=== PATIENT | male | born 1965 | race Caucasian/White ===

== ENCOUNTER → 2019-06-09 | Outpatient (CLI) | payer BC ==
--- NOTE | 2019-06-09 17:45 | PCVCIMAG ---
APPROVED REPORT Study performed: 06/09/2019 15:53:47 EXAM: Comprehensive 2D, Doppler, and color-flow Echocardiogram Patient Location: Echo lab Room #: 2Status: routine BSA: 2.11 HR: 74 bpmBP: 220/106 mmHg Rhythm: LBBB with frequent PVCs Other Information Study Quality: Good Risk Factors: Cardiac Risk Factors: HTN Indications Abnormal ECG Palpitations Hypertension/HDD 2D Dimensions LV Single Plane 4CH: 40.19 % LV Single Plane 2CH: 50.89 % Biplane EF: 46.6 % Volumes Left Atrial Volume (Systole) Biplane LA Volume: 51.00 mLLA ESV Index: 24.00 mL/m2 Aortic Valve AoV Peak Zacarias.: 1.52 m/s AO Peak Gr.: 13.00 mmHg Mitral Valve E/A Ratio: 0.8 MV E Max Zacarias.: 0.85 m/s MV A Zacarias.: 1.04 m/s IVRT: 163.00 ms Tricuspid Valve TR Peak Gr.: 13.00 mmHg TV Vmax: 0.65 m/sPA Pressure: 20.00 mmHg Left Ventricle The left ventricle is normal size. The apex is dilated Mid distal septal and inferior hypokinesis. There is normal left ventricular wall thickness. Left ventricular systolic function is moderately decreased. LVEF is 40-45% This study is not technically sufficient to allow evaluation of the LV diastolic function. Right Ventricle The right ventricle is normal size. The right ventricular systolic function is normal. Atria The left atrium size is normal. The right atrium size is normal. Aortic Valve Aortic valve is trileaflet. Mild aortic valve sclerosis. Mild aortic regurgitation. There is no aortic valvular stenosis. Mitral Valve The mitral valve is normal in structure. Mild mitral regurgitation. No evidence of mitral valve stenosis. Tricuspid Valve The tricuspid valve is normal in structure. Trace to mild tricuspid regurgitation with a PA pressure of 20 mmHg. Pulmonic Valve The pulmonary valve is normal in structure. There is no pulmonic valvular regurgitation. Great Vessels The aortic root is normal in size. The ascending aorta is normal in size. Aortic arch is normal in caliber. IVC is normal in size and collapses >50% with inspiration. Pericardium There is no pericardial effusion. There is no pleural effusion. <Conclusion> The left ventricle is normal size. The apex is dilated Left ventricular systolic function is moderately decreased. LVEF is 40-45% The right ventricle is normal size. The left atrium size is normal. Aortic valve is trileaflet. Mild aortic valve sclerosis. Mild aortic regurgitation. Mild mitral regurgitation. Trace to mild tricuspid regurgitation with a PA pressure of 20 mmHg. The aortic root is normal in size. There is no pericardial effusion.
== END | disposition home or self-care (01) ==
LOC: PCVCIMAG 15:42
PROVIDERS: ATTEND Internal Medicine Cardiovascular Disease
DX: I08.3 Combined rheumatic disorders of mitral, aortic and tricuspid valves (principal); I10 Essential (primary) hypertension; I44.7 Left bundle-branch block, unspecified; I49.3 Ventricular premature depolarization; K21.9 Gastro-esophageal reflux disease without esophagitis; Z72.89 Other problems related to lifestyle; Z88.0 Allergy status to penicillin; Z82.49 Family history of ischemic heart disease and other diseases of the circulatory system; Z79.82 Long term (current) use of aspirin; Z79.899 Other long term (current) drug therapy
CPT/HCPCS: 93306; 93325; 93351

== ENCOUNTER → 2019-06-20 | Outpatient (CLI) | payer BC ==
[~2019-06-20] MED LIST: REGADENOSON 0.4 MG/5 ML DISP.SYRIN. IV ONE
--- NOTE | 2019-06-20 15:54 | PCVCIMAG ---
EXAM: BILATERAL RENAL ULTRASOUND AND BILATERAL RENAL DUPLEX INDICATION: Hypertension FINDINGS: Right kidney: Length measures 10.6 cm. No hydronephrosis or extensive renal scarring. Right renal duplex: Adequate technical quality. No sonographic evidence of renal artery stenosis. The aortic to renal artery ratio is 1.6. The renal vein is patent. Left kidney: Length measures 11.0 cm. No hydronephrosis or extensive renal scarring. Left renal duplex: Adequate technical quality. No sonographic evidence of renal artery stenosis. The aortic to renal artery ratio is 0.9. The renal vein is patent. Bladder: No obvious abnormalities. IMPRESSION: No significant renal artery stenosis. No hydronephrosis bilaterally. LOC:[id number]
--- NOTE | 2019-06-20 17:36 | PCVCIMAG ---
APPROVED REPORT Imaging Protocol: Rest Tc-99m/Stress Tc-99m 1 day Study performed: 06/20/2019 09:14:04 Indication: Chest pain, Dyspnea, Palpitations, Supraventricular Tachycardia Patient Location: Out-Patient Stress Nurse: Flaca Fernandez RN, Nataliya Gibbs RN PA Tech:SAEED [place] Ht: 6 ft 0 in Wt: 196 lbs BSA: 2.11 m2 HR: 71 bpm BP: 200/88 mmHg BMI: 26.5 Rhythm: Sinus Rhythm, LBBB Medical History Medical History: HTN Medications: Aspirin, Bystolic, Edarbyclor, Crestor Allergies: PCN Cardiac Risk Factors: Age Pretest Chest Pain Characteristics: No chest pain Exercise History: Indeterminate Resting Data Rest SPECT myocardial perfusion imaging was performed in supine position 45 minutes following the intravenous injection of 10.6 mCi of Tc-99m Sestamibi. Time of rest injection: 0930 Date: 06/20/2019 Administration Route: IV Administration Site: Right AC Pharmacologic Stress Pharmacologic stress test was performed by injecting Regadenoson 0.4 mg IV push over 10-15 seconds immediately followed by the intravenous injection of 32.8 mCi of Tc-99m Sestamibi. Time of stress injection: 1100 Date: 06/20/2019 Administration Route: IV Administration Site: Right AC Gated Stress SPECT was performed 45 minutes after stress injection. The images were gated to evaluate regional wall motion and calculate left ventricular ejection fraction. Stress Test Details Stress Test: Pharmacologic stress testing performed using 0.4 mg of regadenoson per 5 mL given IV over 10 seconds. Reason for pharmacologic stress test: physical limitation, LBBB and Hypertension. HRMax Heart Rate (APMHR): 166 bpm Resting HR: 71 bpmTarget HR (85% APMHR): 141 bpm Max HR Achieved: 92 bpm % of APMHR: 55 Recovery HR: 75 bpm BP Resting BP: 200/88 mmHg Max BP: 196/106 mmHg Recovery BP: 168/100 mmHg ECG Resting ECG: Sinus Rhythm, LBBB Stress ECG: Sinus Rhythm, LBBB Arrhythmia: PVC's Recovery ECG: Sinus Rhythm, LBBB Clinical Reason for Termination: Completed protocol Stress Symptoms: Dyspnea Symptoms resolved with caffeine. Stress ECG Conclusion ECG: Non-ischemic Study Quality Study: Good Study Data Post stress, the left ventricular ejection was 37%.. SSS: 10 SRS: 9 SDS: 1 TID = 0.95. 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 Wall Motion Mild/moderately decreased left ventricular systolic function. 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 Post stress, the left ventricular ejection was 37%. No prior study available for comparison. Interpreted by: Adams Moran MD Electronically Approved: 06/20/2019 15:30:55 <Conclusion> ECG: Non-ischemic
== END | disposition home or self-care (01) ==
LOC: PCVCIMAG 08:26
PROVIDERS: ATTEND Internal Medicine Cardiovascular Disease
DX: I10 Essential (primary) hypertension (principal); I44.7 Left bundle-branch block, unspecified; R07.9 Chest pain, unspecified; R06.02 Shortness of breath; R00.2 Palpitations; K21.9 Gastro-esophageal reflux disease without esophagitis
CPT/HCPCS: 76770; 78452; 93017; 93975; A9500; J2785